=== PATIENT | female | born 1960 | race Two or more races ===

== ENCOUNTER 2016-08-04 12:53 | Emergency (ER) | payer OTHER, SELFPAY ==
[~2016-08-04] VITALS: Ht 170.2 cm; Wt 66.7 kg
[~2016-08-04 12:53] MED LIST: IBUPROFEN600 MG ORAL
[2016-08-04] MEDS ORDERED: SYNTHROID100 MCG ORAL (13:01)
[2016-08-04] MEDS ORDERED: ATENOLOL50 MG ORAL (13:01)
[2016-08-04] MEDS ORDERED: PROCARDIA XL30 MG ORAL (13:02)
[2016-08-04] MEDS ORDERED: ADALAT10 MG ORAL (13:02)
[2016-08-04] MEDS ORDERED: Famotidine 20 MG/ 2ML VIAL IVP ONE (13:15)
[2016-08-04] MEDS ORDERED: fentaNYL 100 mcg/2 mL IV ONE (13:15)
--- NOTE | 2016-08-04 13:31 | Emergency Room Report ---
History of Present Illness General Chief Complaint: Abdominal Pain Source: Patient Present Illness HPI The patient presents with epigastric pain that awakened her this morning. Was severe. It still is 8/10. It also radiates down into her abdomen the lower abdomen more midline. She last moved her bowels yesterday. It was normal. She did drink some alcohol last night. She has no fevers, vomiting, hematochezia or melena. There is no dysuria. She did not take any medication for pain. She took her normal medicines for blood pressure and thyroid. This has never happened to her. No dyspnea, chest pain. 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 Last Menstrual Period: no period Reviewed Nursing Documentation: PMH: Agreed, PSxH: Agreed Nursing Documentation-PMH Hx Hypertension: Yes Review of Systems All Other Systems: negative except mentioned in HPI Physical Exam Vital Signs Date Time Temp Pulse Resp B/P Pulse Ox O2 Delivery O2 Flow Rate FiO2 08/04/16 12:56 97.9 73 16 119/77 96 Room Air Sp02 EP Interpretation: reviewed, normal General Appearance: well appearing, no apparent distress, GCS 15 Head: normocephalic Eyes: bilateral eye PERRL, bilateral eye other - exophthalmous ENT: moist mucus membranes Neck: supple Respiratory: chest non-tender, lungs clear, normal breath sounds Cardiovascular #1: regular rate, rhythm Cardiovascular #2: 2+ radial (R) Gastrointestinal: normal bowel sounds, non-distended, no rebound, tenderness - epigastric and LLQ (epigastric > LLQ) Musculoskeletal: back normal, gait/station normal, normal range of motion Neurologic: alert, oriented x3, grossly normal Psychiatric: mood/affect normal Skin: normal inspection, warm/dry Medical Decision Making Diagnostic Impression: Primary Impression: Abdominal pain Qualified Codes: R10.13 - Epigastric pain ER Course Patient presents with epigastric pain that awakened her. Differential includes gastritis, peptic ulcer disease, gallbladder disease, diverticulitis, UTI amongst others. In addition we need to exclude any cardiac cause. Evaluation will be with laboratory, ultrasound and EKG. The patient will be receiving IV fluids analgesia and Zofran with Pepcid. Labs unremarkable except for slightly elevated glucose and alk phos/alt. Ultrasound excludes biliary disease. With treatment pain better /10. Patient stable for outpatient observation and treatment. Laboratory Tests Test 08/04/16 13:05 08/04/16 14:20 Urine Color Yellow Urine Appearance Slightly cloudy Urine pH 5 (4.5-8.0) Urine Specific [place] 1.010 (1.005-1.035) Urine Protein Negative (NEGATIVE) Urine Glucose (UA) Negative (NEGATIVE) Urine Ketones Negative (NEGATIVE) Urine Occult Blood 1+ (NEGATIVE) H Urine Nitrite Negative (NEGATIVE) Urine Bilirubin Negative (NEGATIVE) Urine Urobilinogen Normal MG/DL (0.0-1.0) Urine Leukocyte Esterase Negative (NEGATIVE) Urine RBC 0-2 /HPF (0 - 2) Urine WBC 0-2 /HPF (0 - 2) Urine Squamous Epithelial Cells Moderate /LPF (NONE/OCC) H Urine Bacteria Few /HPF (NONE) White Blood Count 12.1 K/UL (4.8-10.8) H Red Blood Count 5.03 M/UL (4.20-5.40) Hemoglobin 16.0 G/DL (12.0-16.0) Hematocrit 49.3 % (37.0-47.0) H Mean Corpuscular Volume 98 FL (80-99) Mean Corpuscular Hemoglobin 31.9 PG (27.0-31.0) H Mean Corpuscular Hemoglobin Concent 32.5 G/DL (32.0-36.0) Red Cell Distribution Width 12.1 % (11.6-14.8) Platelet Count 296 K/UL (150-450) Mean Platelet Volume 8.3 FL (6.5-10.1) Neutrophils (%) (Auto) 64.3 % (45.0-75.0) Lymphocytes (%) (Auto) 27.0 % (20.0-45.0) Monocytes (%) (Auto) 7.3 % (1.0-10.0) Eosinophils (%) (Auto) 0.3 % (0.0-3.0) Basophils (%) (Auto) 1.1 % (0.0-2.0) Prothrombin Time 11.8 SEC (9.30-11.50) H Prothrombin Time INR 1.2 (0.9-1.1) H PTT 27 SEC (23-33) Sodium Level 142 mEQ/L (135-145) Potassium Level 4.4 mEQ/L (3.4-4.9) Chloride Level 99 mEQ/L (98-107) Carbon Dioxide Level 27 mEQ/L (20-30) Anion Gap 16 (5-15) H Blood Urea Nitrogen 11 mg/dL (7-23) Creatinine 0.8 mg/dL (0.5-0.9) Estimate Glomerular Filtration Rate > 60 mL/min (>60) Glucose Level 146 mg/dL (74-106) H Calcium Level 10.0 mg/dL (8.6-10.2) Total Bilirubin 0.3 mg/dL (0.0-1.2) Aspartate Amino Transferase (AST) 35 U/L (5-40) Alanine Aminotransferase (ALT) 40 U/L (3-33) H Alkaline Phosphatase 112 U/L (35-104) H Total Protein 7.5 g/dL (6.6-8.7) Albumin 4.3 g/dL (3.5-5.2) Globulin 3.2 g/dL Albumin/Globulin Ratio 1.3 (1.0-2.7) Lipase 56 U/L (< 60) EKG Diagnostic Results Rate: normal Rhythm: NSR ST Segments: no acute changes Rhythm Strip Diag. Results EP Interpretation: yes Rhythm: NSR, no PVC's, no ectopy CT/MRI/US Diagnostic Results CT/MRI/US Diagnostic Results : Imaging Test Ordered: U/S abdomen Impression no gall stones IMPRESSION: Hepatic steatosis Inadequate visualization spleen Remainder of exam unremarkable. Last Vital Signs Date Time Temp Pulse Resp B/P Pulse Ox O2 Delivery O2 Flow Rate FiO2 08/04/16 15:13 97.9 72 17 108/68 98 Room Air Status: improved Disposition: HOME, SELF-CARE Condition: Improved Scripts Famotidine (PEPCID) 20 Mg Tablet 20 MG ORAL DAILY, #30 TAB 0 Refills Prov: Kvng Sanchez M.D. 08/04/16 Ondansetron Odt* (ZOFRAN ODT*) 4 Mg Tab.rapdis 4 MG ORAL Q8H Y for Nausea & Vomiting, #6 TAB 0 Refills Prov: Kvng Sanchez M.D. 08/04/16 Tramadol Hcl* (ULTRAM*) 50 Mg Tablet 50 MG ORAL Q6H Y for For Pain, #10 TAB 0 Refills Prov: Kvng Sanchez M.D. 08/04/16 Referrals: NON PHYSICIAN (PCP) Kvng Sanchez M.D. Aug 04, 2016 13:31
[2016-08-04 13:37] VITALS: BP 120/68
[2016-08-04 13:40] LABS: APPEARANCE,URINE SLIGHTLY CLOUDY; KETONES,URINE NEGATIVE (NEGATIVE); LEUKOCYTE ESTERASE ,URINE NEGATIVE (NEGATIVE); NITRITE,URINE NEGATIVE (NEGATIVE); PH,URINE 5 (4.5-8.0); PROTEIN,URINE NEGATIVE (NEGATIVE); UROBILINOGEN,URINE NORMAL MG/DL (0.0-1.0)
[2016-08-04 14:05] LABS: BACTERIA,URINE FEW /HPF; RBC,URINE 0-2 /HPF (0 - 2); SQUAMOUS EPITHELIAL CELL,UR MODERATE /LPF (NONE/OCC); WBC,URINE 0-2 /HPF (0 - 2)
[2016-08-04 14:32] LABS: BASOPHILS % (AUTO) 1.1 % (0.0-2.0); EOSINOPHILS % (AUTO) 0.3 % (0.0-3.0); MEAN CORPUSCULAR HEMOGLOBIN 31.9 PG (27.0-31.0); MEAN CORPUSCULAR HGB CONC 32.5 G/DL (32.0-36.0); MEAN CORPUSCULAR VOLUME 98 FL (80-99); MEAN PLATELET VOLUME 8.3 FL (6.5-10.1); MONOCYTES % (AUTO) 7.3 % (1.0-10.0); NEUTROPHILS % (AUTO) 64.3 % (45.0-75.0); PLATELET COUNT 296 K/UL (150-450); RED BLOOD COUNT 5.03 M/UL (4.20-5.40); RED CELL DISTRIBUTION WIDTH 12.1 % (11.6-14.8); WHITE BLOOD COUNT 12.1 K/UL (4.8-10.8)
[2016-08-04 14:36] VITALS: BP 108/68
[2016-08-04 14:41] LABS: INR 1.2 (0.9-1.1); PROTHROMBIN TIME 11.8 SEC (9.30-11.50)
[2016-08-04 14:45] LABS: ALANINE AMINOTRANSFERASE 40 U/L (3-33); ALBUMIN/GLOBULIN RATIO 1.3 (1.0-2.7); ANION GAP 16 (5-15); ASPARTATE AMINO TRANSFERASE 35 U/L (5-40); CARBON DIOXIDE 27 mEQ/L (20-30); CHLORIDE 99 mEQ/L (98-107); CREATININE 0.8 mg/dL (0.5-0.9); GLOMERULAR FILTRATION RATE > 60 mL/min (>60); HEMOLYSIS 11; LIPASE 56 U/L (< 60); POTASSIUM 4.4 mEQ/L (3.4-4.9); SODIUM 142 mEQ/L (135-145); TOTAL PROTEIN 7.5 g/dL (6.6-8.7)
[2016-08-04] MEDS ORDERED: PEPCID20 MG ORAL (14:59)
[2016-08-04] MEDS ORDERED: TRAMADOL HCL50 MG ORAL (14:59)
[2016-08-04] MEDS ORDERED: ZOFRAN ODT4 MG ORAL (14:59)
[2016-08-04 15:13] VITALS: BP 108/68
--- NOTE | 2016-08-05 10:30 | Diagnostic Imaging Report ---
Indications: Abdominal pain Technique: Transabdominal real-time grayscale and duplex Doppler imaging of the upper abdomen and retroperitoneum was performed. Findings: Comparison: None. Liver normal size and surface contour, diffusely increased parenchymal echogenicity. No focal lesions. Gallbladder unremarkable. No intraluminal stones or sludge. No mural thickening or adjacent fluid collections. Sonographic Chan sign not reported.. Bile ducts normal caliber. Common bile duct 2 mm. Pancreas visualized portions unremarkable. Spleen not well demonstrated. Right kidney unremarkable. Left kidney unremarkable. Abdominal aorta, intrahepatic portion of inferior vena cava patent, normal caliber. Duplex Doppler imaging demonstrates antegrade flow in splenic, portal, hepatic veins. No ascites. IMPRESSION: Hepatic steatosis Inadequate visualization spleen Remainder of exam unremarkable.
--- NOTE | 2016-08-06 18:56 | Cardiology Report ---
APPROVED REPORT EKG Measurement Heart [id number] Normal sinus rhythm Normal ECG
== END 2016-08-04 15:15 | disposition home or self-care (01) ==
LOC: EMR 13:10
DX: R10.13 Epigastric pain (principal); I10 Essential (primary) hypertension; Z88.1 Allergy status to other antibiotic agents
CPT/HCPCS: 36415; 76700; 80053; 81003; 83690; 85025; 85610; 85730; 93005; 96374; 96375; 99284; J2405; J3010; S0028

== ENCOUNTER 2018-04-05 19:19 | Emergency (ER) | payer OTHER ==
[~2018-04-05] VITALS: Ht 170.2 cm; Wt 68.0 kg
[~2018-04-05 19:19] MED LIST changes: +ADALAT10 MG ORAL; +ATENOLOL50 MG ORAL; +PEPCID20 MG ORAL; +PROCARDIA XL30 MG ORAL; +SYNTHROID100 MCG ORAL; +TRAMADOL HCL50 MG ORAL; +ZOFRAN ODT4 MG ORAL
[2018-04-05 19:36] VITALS: BP 154/86
[2018-04-05] MEDS ORDERED: Naproxen 500mg tab ORAL ONE (20:00)
[2018-04-05] MEDS ORDERED: NAPROXEN500 M2 ORAL (20:43)
--- NOTE | 2018-04-05 20:43 | Emergency Room Report ---
History of Present Illness General Chief Complaint: thumb trauma Present Illness HPI 58-year-old female with no significant past medical history ear complaining of pain in right thumb after fall yesterday.patient reports falling on outstretched hand complaining of 10 out of 10 pain and right hand swelling complains of pain radiation to the right wrist. Denies tingling or numbness. Some ibuprofen with minimal relief. denies sob, cp, palp, and all other associated symptoms. Allergies: Coded Allergies: CIPROFLOXACIN (Verified Adverse Reaction, Intermediate, 06/11/13) Patient History Past Medical History: see triage record Past Surgical History: none Last Menstrual Period: na Now: No Immunizations: UTD Reviewed Nursing Documentation: PMH: Agreed; PSxH: Agreed Nursing Documentation-PMH Hx Hypertension: Yes Review of Systems All Other Systems: negative except mentioned in HPI Physical Exam Vital Signs Date Time Temp Pulse Resp B/P (MAP) Pulse Ox O2 Delivery O2 Flow Rate FiO2 04/05/18 19:25 98.2 77 18 154/86 97 Room Air Sp02 EP Interpretation: reviewed, normal General Appearance: normal inspection, well appearing, no apparent distress Head: normocephalic, atraumatic Eyes: bilateral eye normal inspection, bilateral eye PERRL ENT: normal ENT inspection, hearing grossly normal Neck: normal inspection, supple Respiratory: normal inspection, lungs clear, no rhonchi, no wheezing Cardiovascular #1: normal inspection, regular rate, rhythm, no gallop, no murmur Cardiovascular #2: 2+ radial (R), 2+ radial (L) Gastrointestinal: normal inspection, soft Rectal: deferred Genitourinary: deferred Musculoskeletal: back normal, tender - deformity of right thumb, unable to do ROM, antomical snuffbox intact Neurologic: normal inspection, alert, oriented x3 Psychiatric: normal inspection, judgement/insight normal, memory normal Skin: normal inspection, normal color, no rash, warm/dry Lymphatic: normal inspection, no adenopathy Procedures Splinting Splinting : Consent: Verbal Pre-Made Type: Splint: thumb spica Pre-Proc Neuro Vasc Exam: normal Post-Proc Neuro Vasc Exam: normal Patient Tolerated: Well Complications: None Medical Decision Making PA Attestation all diagnosis and treatment plans were reviewed and discussed the medicine who is a physician,Dr. Gregory Diagnostic Impression: Primary Impression: Fracture of thumb, right, closed ER Course 58-year-old female with no significant past medical history ear complaining of pain in right thumb after fall yesterday.patient reports falling on outstretched hand complaining of 10 out of 10 pain and right hand swelling complains of pain radiation to the right wrist. Denies tingling or numbness. Some ibuprofen with minimal relief. denies sob, cp, palp, and all other associated symptoms. Ddx considered but are not limited to right thumb fx, thumb sprain, thumb contusion Vital signs: are WNL, pt. is afebrile H&PE are most consistent with right thumb fx ORDERS: finger Xray, Naproxen 500mg ED INTERVENTIONS:Naproxen 500mg, thumb spica DISCHARGE: At this time pt. is stable for d/c to home. Will provide printed patient care instructions, and any necessary prescriptions. Care plan and follow up instructions have been discussed with the patient prior to discharge. keep thumb spica on until seeing ortho, avoid straneous PE with affected hand, RICE guidelines Other X-Ray Diagnostic Results Other X-Ray Diagnostic Results : X-Ray ordered: right finger Xray # of Views/Limited Vs Complete: 2 View Indication: Swelling EP Interpretation: Yes JEFERSON Xray: Interpretation reviewed, by supervising MD, and agrees with findings. Interpretation: no dislocation, other - fx right thumb Impression: No acute disease Electronically Signed by: Cristóbal Snyder PA-C Last Vital Signs Date Time Temp Pulse Resp B/P (MAP) Pulse Ox O2 Delivery O2 Flow Rate FiO2 04/05/18 19:36 76 18 Room Air 04/05/18 19:36 98.2 154/86 97 Disposition: HOME, SELF-CARE Condition: Stable Scripts Naproxen* (NAPROXEN*) 500 Mg Tablet 500 MG ORAL TWICE A DAY, #30 TAB Prov: Cristóbal Zazueta 04/05/18 Referrals: [facility] RENARD SOARES,REFERRING (PCP) Patient Instructions: Thumb Fracture Additional Instructions: keep splint on until seen by ortho, take medication as directed, avoid strenuous physical activity with the affected hand if numbness or tingling follow up with the primary care provider for further imaging Cristóbal Zazueta Apr 05, 2018 20:43
[2018-04-05 20:48] VITALS: BP 148/78
--- NOTE | 2018-04-06 12:18 | Diagnostic Imaging Report ---
Indication: Pain in the right thumb Comparison: None Findings: 3 views of the right thumb obtained. No fracture, malalignment, radiopaque foreign body identified. IMPRESSION: Negative evaluation
== END 2018-04-05 20:48 | disposition home or self-care (01) ==
LOC: EMR 19:59
DX: S62.501A Fracture of unspecified phalanx of right thumb, initial encounter for closed fracture (principal); W19.XXXA Unspecified fall, initial encounter; Y92.9 Unspecified place or not applicable; I10 Essential (primary) hypertension
CPT/HCPCS: 29130; 99283